=== PATIENT | female | born 1965 | race Hispanic/Latino ===

== ENCOUNTER → 2018-02-09 | Day surgery (SDC) | payer BC ==
[~2018-02-09] MED LIST: FENTANYL CITRATE/PF 100MCG/2 ML INJ ONE; MIDAZOLAM HCL 2 MG/2 ML VIAL ONE; OMEPRAZOLE40 MG
[2018-02-09 12:05] VITALS: BP 106/73
--- NOTE | 2018-03-04 13:28 | Operative Report ---
DATE OF PROCEDURE: February 09, 2018 PREOPERATIVE DIAGNOSIS: Colon cancer screening. POSTOPERATIVE DIAGNOSIS: Colon cancer screening, no colon polyps found. PREOPERATIVE MEDICATIONS: Consisted of TIVA anesthesia. Using the [employer] video colonoscope, it was inserted into the patient's rectum and advanced without difficulty to the level of the cecum. The colon was studied from that level back down to the rectum. No polypoid lesions, tumor masses, or inflammatory changes were encountered. The colonoscope was withdrawn from the patient's rectum and the procedure was ended. In conclusion, we have findings of a normal colon examination. Job#: [id number]
== END | disposition home or self-care (01) ==
LOC: OR 09:12
PROVIDERS: ATTEND Internal Medicine Gastroenterology
DX: Z12.11 Encounter for screening for malignant neoplasm of colon (principal); K21.9 Gastro-esophageal reflux disease without esophagitis; Z01.810 Encounter for preprocedural cardiovascular examination; Z83.79 Family history of other diseases of the digestive system
CPT/HCPCS: 45378; 81025; 93005; J2250